=== PATIENT | male | born 2005 | race Hispanic/Latino ===

== ENCOUNTER 2023-07-28 14:00 | Emergency (ER) | payer MEDICAID, OTHER ==
[~2023-07-28] VITALS: Ht 170.2 cm; Wt 45.4 kg
[2023-07-28 14:07] VITALS: BP 128/61; PULSE 70; RESP 16; O2SAT 100
== END 2023-07-28 16:28 | disposition left against medical advice (07) ==
LOC: EDH 14:00
DX: H57.10 Ocular pain, unspecified eye (principal); Z53.21 Procedure and treatment not carried out due to patient leaving prior to being seen by health care provider
CPT/HCPCS: 99281